=== PATIENT | female | born 1975 | race American Indian/Alaskan Native ===

== ENCOUNTER 2016-11-13 09:34 | Outpatient (CLI) | payer BC ==
[2016-11-13 10:09] LABS: Hematocrit 40.3 % (30.3-42.9); Hemoglobin 13.4 gm/dl (10.1-14.3); Mean Corpuscular HGB Conc 33 % (30-34); Mean Corpuscular Hemoglobin 30 pg (28-32); Mean Corpuscular Volume 90 fl (79-97); Platelet Count 284 K/mm3 (140-440); Red Cell Distribution Width 13.4 % (13.2-15.2)
[2016-11-13 10:38] LABS: Alanine Aminotransferase 27 units/L (7-56); Albumin 4.4 g/dL (3.9-5); Albumin/Globulin Ratio 1.5 %; Alkaline Phosphatase 55 units/L (35-129); BUN/Creatinine Ratio 18.33; Bilirubin,Total 0.3 mg/dL (0.1-1.2); Blood Urea Nitrogen 11 mg/dL (7-17); Calcium 9.3 mg/dL (8.4-10.2); Carbon Dioxide 24 mmol/L (22-30); Cholesterol 195 mg/dL (50-199); Glucose 81 mg/dL (65-100); HDL Cholesterol 46 mg/dL (40-59); LDL Cholesterol,Direct 136 mg/dL (50-130); Total Protein 7.4 g/dL (6.3-8.2); Triglycerides 65 mg/dL (2-149)
[2016-11-13 10:39] LABS: Anion Gap 18 mmol/L; Potassium 3.8 mmol/L (3.6-5.0); Sodium 142 mmol/L (137-145)
== END 2016-11-13 09:35 | disposition home or self-care (01) ==
LOC: LAB 09:34
PROVIDERS: ATTEND Specialist
DX: K30 Functional dyspepsia (principal)
CPT/HCPCS: 36415; 80053; 80061; 85027

== ENCOUNTER 2016-11-24 06:42 | Day surgery (SDC) | payer BC ==
--- NOTE | 2016-11-24 07:48 | Anesthesia Day of Surgery ---
Anesthesia Day of Surgery - Day of Surgery Patient Examined: Yes Patient H&P Reviewed: Yes Patient is NPO: Yes
--- NOTE | 2016-11-24 07:48 | Anesthesia Consultation ---
Anesthesia Consult and Med Hx Date of service: 11/24/16 - Airway Anesthetic Teeth Evaluation: Good ROM Head & Neck: Adequate Mental/Hyoid Distance: Adequate Mallampati Class: Class I Intubation Access Assessment: Good - Pulmonary Exam CTA: Yes - Cardiac Exam Cardiac Exam: RRR - Pre-Operative Health Status ASA Pre-Surgery Classification: ASA3 Proposed Anesthetic Plan: General - Pulmonary Hx Sleep Apnea: Yes (cpap) - Other Systems Hx Obesity: Yes - Additional Comments Anesthesia Medical History Comments: No previous anesthesia complications. 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
--- NOTE | 2016-11-24 07:50 | Discharge Summary ---
Providers - Providers Date of discharge: 11/24/16 Attending physician: BECCA STEEL Hospitalization Condition: Good Disposition: DISCHARGED TO HOME OR SELFCARE Core Measure Documentation - Palliative Care Palliative Care/ Comfort Measures: Not Applicable - Core Measures Any of the following diagnoses?: none Exam - Physical Exam Narrative exam: unchanged from pre-op Plan Activity: no restrictions Weight Bearing Status: Full Weight Bearing
[2016-11-24] MEDS ORDERED: DIPRIVAN 10 MG/ML IV ONE (08:00)
[2016-11-24] MEDS ORDERED: NACL 0.9% 1000 ML 1,000 ML IV SCH ×2 (08:00→09:00)
[2016-11-24] MEDS ORDERED: XYLOCAINE MPF 2% ONE (08:05)
--- NOTE | 2016-11-24 08:36 | Post Anesthesia Evaluation ---
- Post Anesthesia Evaluation Patient Participated: Yes Airway Patent: Yes Stable Respiratory Function: Yes Nausea/Vomiting: No Temp > 96.8F: Yes Pain Manageable: Yes Adequeate Hydration: Yes Anesthesia Complications: No Block Receding Appropriately: Not Applicable Patient on Ventilator: No
[2016-11-24 08:51] VITALS: BP 124/67
--- NOTE | 2016-11-24 09:37 | Operative Report ---
Operative Report Operative Report: DATE 11/24/16 SURGERY: Upper endoscopy. SURGEON: Jose Guzman M.D. KENNEL TECHNICIAN: Miles Og MD PRE OP DX: dyspepsia POST OP DX: hiatal hernia TYPE OF ANESTHESIA: MAC. ESTIMATED BLOOD LOSS: None. COMPLICATIONS: None. SPECIMENS REMOVED: None. FINDINGS: 1. Small hiatal hernia. 2. Otherwise, normal esophagus, stomach and first portion of duodenum. INDICATIONS:INDICATION FOR PROCEDURE: Patient is a 40-year-old female with a long history of morbid obesity. She is planned to have a weight loss procedure and is here for preoperative planning EGD. PROCEDURE DETAILS: After consent was reviewed, patient was taken back to the operating room where patient was placed in the left lateral decubitus position and a bite block was placed in the mouth. After a time-out was called, MAC anesthesia was initiated. I then passed the endoscope into her oropharynx, into her esophagus, visualized the entire esophagus, which was all within normal limits. I then visualized the stomach and the first portion of the duodenum and there were no abnormalities I could clearly visualize. I then retroflexed the scope in the stomach and visualized the hiatus and I could see a small hiatal hernia. I then desufflated the stomach and removed the endoscope. Patient tolerated procedure well and was transferred to recovery room in good and stable condition.
[2016-11-24] MEDS ORDERED: WATER FOR IRRIG STERILE IR ONE (15:51)
== END 2016-11-24 06:43 | disposition home or self-care (01) ==
LOC: GIO 06:42
PROVIDERS: ATTEND Surgery
DX: K44.9 Diaphragmatic hernia without obstruction or gangrene (principal); E66.01 Morbid (severe) obesity due to excess calories; Z68.41 Body mass index [BMI] 40.0-44.9, adult
CPT/HCPCS: 43235; 81025; J2704; J7030